=== PATIENT | male | born 1985 | race Two or more races ===

== ENCOUNTER → 2024-02-13 | Outpatient (CLI) | payer MEDICAID, SELFPAY ==
--- NOTE | 2024-02-13 07:30 | XR_ITS ---
Examination: CT chest, without intravenous contrast. Sagittal and coronal 2-D reconstructions. Exam date and time: February 13, 2024 0741 hours Comparison June 12, 2023 INDICATIONS: History weight loss, 6 mm pulmonary nodule left lower lobe on CT chest June 12, 2023 CTDI:vol (mGy) 11.8 DLP: (mGycm) 412 Technique: Multiple 3.0 mm axial sections of the chest to been obtained. Bone and lung density settings are obtained. Sagittal and coronal 2-D reconstructions have been obtained. Low dose protocols were performed. One or more of the following dose reduction techniques were used; automated exposure control, adjustment of the mA and/or KV according to patient size, use of iterative reconstruction technique. Findings: No thoracic aortic aneurysm dilatation Pulmonary artery segments are not enlarged No paratracheal tracheobronchial or bronchopulmonary adenopathy Calcified granuloma right lower lobe Stable 5 mm pleural-based pulmonary nodule left lower lobe No pneumonia or pulmonary edema No focal liver or splenic lesions Cholelithiasis No pancreatic or adrenal mass Kidneys partially visualized with no hydronephrosis The osseous structures are intact IMPRESSION: Stable 5 mm pleural-based pulmonary nodule left lower lobe, no new pulmonary nodules
== END | disposition home or self-care (01) ==
PROVIDERS: PCP Family Medicine; Referring Provider Family Medicine; Visit Provider Family Medicine
DX: Z03.89 Encounter for observation for other suspected diseases and conditions ruled out (principal); R91.1 Solitary pulmonary nodule
CPT/HCPCS: 71250